=== PATIENT | female | born 1945 | race Caucasian/White ===

== ENCOUNTER 2017-10-04 17:59 | Emergency (ER) | payer MEDICARE, BC, OTHER ==
[~2017-10-04] VITALS: Ht 157.5 cm; Wt 93.9 kg
[2017-10-04] MEDS ORDERED: VITAMIN D250000 UNIT PO (18:21)
[2017-10-04] MEDS ORDERED: PRAVASTATIN SOD40 MG PO (18:22)
[2017-10-04] MEDS ORDERED: GENTAK5 ML OPTH (18:22)
[2017-10-04] MEDS ORDERED: LOSARTAN POTASS25 MG PO (18:22)
== END 2017-10-04 20:22 | disposition home or self-care (01) ==
LOC: ED 17:59
DX: G51.0 Bell's palsy (principal); Z79.899 Other long term (current) drug therapy
CPT/HCPCS: 36415; 70450; 80048; 85025; 99284

== ENCOUNTER 2018-12-09 00:27 | Emergency (ER) | payer MEDICARE, BC, OTHER ==
[~2018-12-09] VITALS: Ht 157.5 cm; Wt 93.9 kg
[~2018-12-09 00:27] MED LIST: GENTAK5 ML OPTH; LOSARTAN POTASS25 MG PO; PRAVASTATIN SOD40 MG PO; VITAMIN D250000 UNIT PO
[2018-12-09] MEDS ORDERED: KEFLEX500 MG PO (02:21)
--- NOTE | 2018-12-09 17:46 | EKG ---
[facility] [address] [place], [place] [address] Signed Normal sinus rhythm Low voltage QRS Septal infarct , age undetermined Abnormal ECG No previous ECGs available Confirmed by DASHAWN JARRELL MD ([id number] on 12/09/2018 5:45:52 PM Electronically Signed By: DASHAWN JARRELL MD 12/09/18 1746 PATIENT NAME: SANDI WOLFF MANUEL Electrocardiogram DATE OF : 49 PHYSICIAN: DASHAWN JARRELL MD REPORT #: [id number] REPORT IS CONFIDENTIAL AND NOT TO BE RELEASED WITHOUT AUTHORIZATION
== END 2018-12-09 02:34 | disposition home or self-care (01) ==
LOC: ED 00:27
DX: N39.0 Urinary tract infection, site not specified (principal); I10 Essential (primary) hypertension; E11.9 Type 2 diabetes mellitus without complications; Z79.899 Other long term (current) drug therapy
CPT/HCPCS: 80053; 81001; 84484; 85025; 93005; 93010; 99284-25